=== PATIENT | female | born 1985 | race Caucasian/White ===

== ENCOUNTER 2017-09-16 13:26 | Emergency (ER) | payer OTHER ==
[~2017-09-16] VITALS: Ht 152.4 cm; Wt 81.6 kg
[2017-09-16 14:04] VITALS: BP 138/87; Ht 152.4 cm; Wt 81.6 kg
== END 2017-09-16 17:34 | disposition home or self-care (01) ==
LOC: ED 13:26
DX: N39.0 Urinary tract infection, site not specified (principal); N76.0 Acute vaginitis; J45.909 Unspecified asthma, uncomplicated
CPT/HCPCS: 87491; 87591; J0696; J2001

== ENCOUNTER 2020-02-02 17:12 | Emergency (ER) | payer OTHER ==
[~2020-02-02] VITALS: Ht 152.4 cm; Wt 63.5 kg
[2020-02-02 17:36] VITALS: Ht 152.4 cm; Wt 63.5 kg
[2020-02-02 18:16] VITALS: BP 147/101
== END 2020-02-02 18:16 | disposition home or self-care (01) ==
LOC: ED 17:12
DX: L30.9 Dermatitis, unspecified (principal); J45.909 Unspecified asthma, uncomplicated; R03.0 Elevated blood-pressure reading, without diagnosis of hypertension